=== PATIENT | female | born 1955 | race Caucasian/White ===

== ENCOUNTER 2018-12-14 07:58 | Day surgery (SDC) | payer BC ==
--- NOTE | 2018-12-11 18:20 | EKG ---
Test Date: 2018-12-11 Test Time: 15:05:32 Stove Fitter: CASSIA MEASUREMENT RESULTS: Intervals: Rate: 62 FL: 152 QRSD: 94 QT: 428 QTc: 434 Bement: P: 59 FL: 152 QRS: 63 T: 49 INTERPRETIVE STATEMENTS: Normal sinus rhythm Normal ECG No previous ECG available for comparison Electronically Signed On 12-11-18 18:19:13 [employer] by Kenton Archer
[2018-12-14] MEDS ORDERED: Ringers Lactate 1,000 ML IV ONE (08:13)
[2018-12-14] MEDS ORDERED: PROPOFOL 200 MG/20 ML VIAL IV ONE (08:43)
[2018-12-14] MEDS ORDERED: GLYCOPYRROLATE 0.2 MG/ML SYR ONE (08:44)
[2018-12-14] MEDS ORDERED: MIDAZOLAM HCL 2 MG/2 ML INJ ONE (08:44)
[2018-12-14] MEDS ORDERED: FENTANYL CITR 250 MCG/5 ML ONE (08:45)
[2018-12-14] MEDS ORDERED: ROCURONIUM 50 MG/5 ML VIAL IV ONE (08:46)
[2018-12-14] MEDS ORDERED: ONDANSETRON 4 MG/2 ML VIAL ONE (08:46)
[2018-12-14] MEDS ORDERED: NEOSTIGMINE 1 MG/ML -5 ML SYRINGE ONE (08:46)
[2018-12-14] MEDS ORDERED: LIDOCAINE 2% MPF 5 ML VIAL ONE (08:47)
[2018-12-14] MEDS ORDERED: DEXAMETHASONE 10 MG/ML VIAL ONE (08:47)
[2018-12-14] MEDS ORDERED: EPINEPHRINE/PF 1 MG/ML AMP ONE (09:14)
[2018-12-14] MEDS ORDERED: NS 0.9% VIAL 0 ML ONE (09:14)
[2018-12-14] MEDS ORDERED: LIDOCAINE 1% W/EPI 1:100,000 MDV 50 ML VIAL ONE (09:15)
--- NOTE | 2018-12-14 09:55 | P.BOP ---
Preoperative diagnosis: vocal polyp Postoperative diagnosis: vocal polp Primary procedure: DL with microlaryngoscopic removal of L vocal polyp Community Fundraiser: NONE,[phone] Estimated blood loss: <5ml Specimen: L TVF Anesthesia: General Complications: None Fluids & blood products: crystalloid 450ml Transferred to: Recovery Room Condition: Good
[2018-12-14] MEDS ORDERED: EPHEDRINE SULF 50 MG/ML VIAL ONE (09:56)
[2018-12-14] MEDS: MEPERIDINE HCL 25 MG/0.5 ML ONE ×4 (10:25→10:45)
--- NOTE | 2018-12-14 20:56 | OP ---
Date of Procedure: 12/14/2018 Surgeon: Leah Monique MD Preoperative Diagnoses: Vocal polyps, dysphonia, tobacco use. Postoperative Diagnoses: Vocal polyps, dysphonia, tobacco use. Procedures: Direct laryngoscopy with telescope and submucosal removal of nonneoplastic vocal cord lesion with reconstruction of local tissue flap. Indication For Procedure: Ms. Silva presented to the clinic with longstanding dysphonia and history of tobacco use and history of previous vocal cord excisions. Previous records were not available. On endoscopy, the patient was noted to have a floppy polypoid vocal cord with poor mucosal wave due to the polyps. The risks, benefits, and alternatives to surgery were discussed; and the patient agreed to proceed. The patient weaned herself down to 2 cigarettes per day and started Chantix 4 days prior to the procedure with intent for smoking sensation starting on the day of surgery. Description Of Procedure: The patient was brought to the operating room. She was placed under general anesthesia via oral endotracheal tube. A Bakari-Ber laryngoscope fitted with appropriate telescope was used to perform a direct laryngoscopy. There was a soft, small, less than 1 cm tonsillar cyst on the inferior pole of the right tonsil, which was not otherwise concerning; and no biopsy or procedure was performed on this lesion. The posterior pharyngeal wall , epiglottis, vallecula, piriform sinuses, and false vocal cords were unremarkable. The true vocal folds were noted to be polypoid and photodocumentation was obtained. During endoscopy, the left side was noted to be worse and was addressed with this procedure. The patient was advised that bilateral procedure included the risk of glottic stenosis and would not be attempted. She understood the possibility of return to the operating room for removal of right vocal polyp depending on voice performance after healing. The left vocal cord was injected with less than half a milliliter of 1% lidocaine with epinephrine. The leading edge of the polyp was grasped using a Bouchiere to the left. An up-cutting laryngeal scissor was used to incise the mucosa along the upper portion of the polyp. Microdissection technique was used to carefully remove the polypoid tissue, and the excess mucosa was carefully excised. The deep aspect of the mucosal surface was then promise over the defect, and photodocumentation was obtained. There was minimal bleeding. The patient was then returned to care of anesthesia for awakening and extubation in the operating room, which proceeded without difficulty. Disposition: The patient will be discharged home later today with strict voice rest x10 days, a twice daily proton pump inhibitor, and absolutely no tobacco use. We will assess the patient's postoperative voice at her followup visit to determine whether additional surgery would be necessary. TRUDI Voice ID: [id number] Report ID: [id number] MTDD
== END 2018-12-14 12:05 | disposition home or self-care (01) ==
LOC: OR 07:58
PROVIDERS: ATTEND Otolaryngology
PROC: 0CU Mouth and Throat, Supplement (ICD-10-PCS; 2018-12-14)
PROC: 0CBV8ZZ Excision of Left Vocal Cord, Via Natural or Artificial Opening Endoscopic (ICD-10-PCS; principal; 2018-12-14 10:00)
DX: J38.1 Polyp of vocal cord and larynx (principal); R49.0 Dysphonia; Z72.0 Tobacco use; J44.9 Chronic obstructive pulmonary disease, unspecified; Z85.828 Personal history of other malignant neoplasm of skin
CPT/HCPCS: 88305; 93005; J0171; J1100; J2175; J2250; J2405; J2704; J2710; J3010